=== PATIENT | female | born 1960 | race African-American/Black ===

== ENCOUNTER 2021-08-13 18:15 | Emergency (ER) | payer OTHER, SELFPAY ==
[2021-08-13 18:21] VITALS: BP 123/95; PULSE 86; RESP 16; TEMP 36.9; O2SAT 98
--- NOTE | 2021-08-13 18:37 | ED.FEMALEGU ---
HPI - Female Genitourinary General Chief complaint: Urogenital-Female Stated complaint: EYE REDNESS/UTI SYMPTOMS Time Seen by Provider: 08/13/21 18:37 Source: patient, RN notes reviewed and old records reviewed Mode of arrival: ambulatory Limitations: no limitations History of Present Illness HPI Narrative: 60-year-old female [facility] of urinary frequency, urinating every 1-1/2 hours. Feels she is going to frequently at work and this is a problem. Denies burning or pain with urination, blood in urine, foul-smelling urine. Appetite is good. Also reports complaints of right eye redness, starting yesterday. Reports eye was slightly matted shut this morning. Reports small amount clear drainage. Reports right eye sensitive to light earlier, but is no longer sensitive to light. Reports right eye pain earlier today, feels less painful now. Reports wearing contacts and took that contact out. Does not have glasses that she can wear. Has moved to the [facility] from [place]. 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 Denies watery or thick mucus discharge. Denies blurry vision, floaters, or other vision changes. Denies runny or stuffy nose. Denies headache or earache. Denies fever muscle aches or chills. Related Data Home Medications Medication Instructions Recorded Confirmed Lexapro 08/13/21 Allergies Allergy/AdvReac Type Severity Reaction Status Date / Time No Known Allergies Allergy Verified 08/13/21 18:23 Review of Systems Review of Systems: CONSTITUTIONAL: Denies fever, chills, or sweats. EYES: Denies visual changes. Reports right eye redness and small amount of clear discharge. ENT: Denies rhinorrhea, congestion, sore throat, or otalgia. CARDIOVASCULAR: Denies chest pain, palpitations, or edema. RESPIRATORY: Denies cough or dyspnea. GASTROINTESTINAL: Denies abdominal pain, nausea, vomiting, or diarrhea. GENITOURINARY: Denies dysuria or hematuria. Reports urinary frequency. SKIN: Denies rash or itching. MUSCULOSKELETAL: Denies back pain, joint pain, or myalgia. NEUROLOGIC: Denies headache, numbness, or weakness. PSYCHIATRIC: Denies anxiety or depression. All other systems reviewed are negative, except as documented in HPI. All systems reviewed & are unremarkable except as noted in HPI and below [facility] Comments At time of signature, agree with nursing past medical, surgical, social and family history. There is no relevant family history pertinent to the presenting complaint Exam Narrative: GENERAL: Well-appearing, well-nourished, female and in no acute distress. Pleasant, cooperative, casually dressed. HEAD: Normocephalic, atraumatic. EYES: Left conjunctivae clear, and EOMI. Right conjunctiva and sclera erythematous. Right EOMI. PERRLA. No right upper or lower eyelid swelling. ENT: Nares clear, no rhinorrhea or epistaxis. Mucous membranes moist. Oropharynx without edema, erythema, or lesions. Tonsils not enlarged and without exudate. NECK: Supple. No lymphadenopathy CHEST: Clear to auscultation, anterior and posterior. Good air movement. Speaks in full sentences. No respiratory distress. HEART: Regular rate and rhythm. ABDOMEN: Soft, flat, nondistended. No guarding, rebound tenderness, or rigid. No pulsatilla masses. Bowel sounds present in all four quadrants. No organomegaly. Negative Alvarado?s sign. No periumbilical tenderness. No Supra public tenderness or distension. Good femoral pulses bilaterally. No hernia noted. No scars or surface trauma. SKIN: Warm, dry, no rash. NEURO: Alert and oriented x3. PSYCH: Euthymic mood and affect Course Course Emergency Course: Patient is aware of diagnosis, understands and agrees to treatment plan. Anticipatory guidance given. Patient agrees to follow-up as directed and is aware of reasons to seek care at the emergency department. Portions of this record may have been created with voice recognition software Level of Care: Expres
== END 2021-08-13 19:00 | disposition home or self-care (01) ==
PROVIDERS: Emergency Provider Nurse Practitioner Family
DX: H10.9 Unspecified conjunctivitis (principal); R35.0 Frequency of micturition
CPT/HCPCS: 81003; 87086; 99213; G0463

== ENCOUNTER 2023-01-07 20:47 | Emergency (ER) | payer OTHER, SELFPAY ==
[2023-01-07 20:49] VITALS: BP 131/72; PULSE 77; RESP 18; TEMP 36.2; O2SAT 100
--- NOTE | 2023-01-07 21:43 | ED.DENTAL ---
HPI - Dental/Oral General Chief complaint: Dental/Oral Stated complaint: dental pain Time Seen by Provider: 01/07/23 21:05 Source: patient Mode of arrival: ambulatory Limitations: no limitations History of Present Illness HPI Narrative: Patient 62-year-old female who presents ED with report of left lower dental pain and jaw swelling. Patient reports having known dental caries and a known loose tooth on her left lower side, tooth #20. She reports having pain around this tooth starting today. She also noticed some swelling to her left lower jaw, which prompted her presentation. She took Aleve prior to arrival with not much relief. Denies any difficulty swallowing or breathing. Denies nausea or vomiting. Denies fevers. She does not currently have a dentist. Related Data Home Medications Medication Instructions Recorded Confirmed Lexapro 08/13/21 Allergies Allergy/AdvReac Type Severity Reaction Status Date / Time No Known Allergies Allergy Verified 01/07/23 20:48 Review of Systems Review of Systems: CONSTITUTIONAL: Denies fever, chills, or sweats. ENT: See HPI. CARDIOVASCULAR: Denies chest pain. RESPIRATORY: Denies dyspnea. GASTROINTESTINAL: Denies nausea, vomiting. All systems reviewed & are unremarkable except as noted in HPI and below Exam Narrative: GENERAL: Well appearing, well-nourished, non-toxic, in no acute distress. HEAD: Normocephalic, atraumatic. EENT: Scattered dental caries. Left lower posterior molars previously extracted, no gum swelling. Tenderness to palpation along outer gumline surrounding left lower teeth, particularly tooth #20. This tooth does appear to be slightly loose. No focal areas of abscess along gumline. Mild tenderness palpation along left lower mandible in the region correlating to tooth #20. No submandibular swelling or tenderness. No swelling or tenderness noted to floor of mouth. No stridor, trismus. No posterior pharynx erythema. No tonsillar hypertrophy or exudate. Uvula midline. NECK: Supple. No lymphadenopathy, no masses. RESPIRATORY: Airway patent, respirations nonlabored. Clear to auscultation bilaterally, no rales, rhonchi, wheezing. CARDIOVASCULAR: Regular rate and rhythm without murmurs, rubs, or gallops. Radial pulses 2+ and equal bilaterally. MUSCULOSKELETAL: Moves all extremities. Strength/ROM intact without gross deformities. SKIN: Warm, dry, normal color. No rashes. NEURO: A&O X3. Speech clear. Cranial nerves II-XII grossly intact. Steady gait. No ataxic movements. PSYCHIATRIC: Appropriate mood and affect. Normal interaction. HENMT: Teeth image: 1. previous dental extractions 2. pain to this tooth Course Vital Signs Vital signs: Vital Signs Temperature 97.1 F L 01/07/23 20:49 Pulse Rate 77 01/07/23 20:49 Respiratory Rate 18 01/07/23 20:49 Blood Pressure 131/72 01/07/23 20:49 Pulse Oximetry 100 01/07/23 20:49 Oxygen Delivery Room Air 01/07/23 20:49 Temperature 97.1 F L 01/07/23 20:49 Pulse Rate 77 01/07/23 20:49 Respiratory Rate 18 01/07/23 20:49 Blood Pressure 131/72 01/07/23 20:49 Pulse Oximetry 100 01/07/23 20:49 Oxygen Delivery Room Air 01/07/23 20:49 MDM - Dental/Oral MDM Narrative Medical decision making narrative: Patient's pain is consistent with dental caries/dental infection. There are no focal signs of space-occupying abscess. There are no signs of Ector's angina or submandibular abscess. The patient is controlling secretions well without signs of airway compromise. No stridor or trismus. No systemic signs of infection. Vital stable. Afebrile. Patient is felt reasonable for outpatient follow-up with dental evaluation. Will prescribe antibiotics. Advised to continue Tylenol and ibuprofen for pain control. Will be given list of dentist for follow-up. Given strict return precautions. Patient agrees with plan. Discharged in stable condition. Medical Records Attestati
[2023-01-07] MEDS: CLINDAMYCIN HCL 150 MG CAP 450 MG PO (21:51)
[2023-01-07] MEDS: ACETAMINOPHEN 500 MG TABLET 1000 MG PO (21:51)
== END 2023-01-07 21:54 | disposition home or self-care (01) ==
PROVIDERS: Emergency Provider Physician Assistant
DX: K02.9 Dental caries, unspecified (principal); R22.0 Localized swelling, mass and lump, head
CPT/HCPCS: 99283; A9270